=== PATIENT | male | born 1945 | race Caucasian/White ===

== ENCOUNTER 2024-10-15 21:26 | Emergency (ER) | payer MEDICARE, BC ==
[2024-10-15] MEDS: Sodium Chloride 0.9% 1,000 ML IV SCH ×2 (21:31→23:27)
[2024-10-15] MEDS ORDERED: Sodium Chloride 0.9% 10 ML Syringe FLUSH PRN (21:42)
[2024-10-15] MEDS: Morphine 4 MG/ML VIAL IVPUSH ONE (21:47)
[2024-10-15 22:18] LABS: BASOPHILS ABSOLUTE AUTO 0.03 K/uL (0.02-0.10); BASOPHILS PERCENT AUTO 0.2 % (0.0-0.5); EOSINOPHILS ABSOLUTE AUTO 0.05 K/uL (0.04-0.40); EOSINOPHILS PERCENT AUTO 0.3 % (1.0-5.0); HEMATOCRIT 37.5 % (40.0-54.0); HEMOGLOBIN 12.3 g/dL (13.0-18.0); LYMPHOCYTES ABSOLUTE AUTO 3.71 K/uL (1.50-4.00); LYMPHOCYTES PERCENT AUTO 19.1 % (20.0-40.0); MEAN CORPUSCULAR HEMOGLOBIN 31.1 pg (27.0-32.0); MEAN CORPUSCULAR HGB CONC 32.8 g/dL (31.0-35.0); MEAN CORPUSCULAR VOLUME 95 fL (76-96); MEAN PLATELET VOLUME 10.8 fL (6.0-10.0); MONOCYTES ABSOLUTE AUTO 1.08 K/uL (0.20-0.80); MONOCYTES PERCENT AUTO 5.6 % (3.0-10.0); NEUTROPHILS ABSOLUTE AUTO 14.52 K/uL (2.00-7.50); NEUTROPHILS PERCENT AUTO 74.8 % (45.0-70.0); PLATELET COUNT,PLT 305 K/uL (150-400); RED BLOOD CELL COUNT 3.96 M/uL (4.50-6.50); RED CELL DISTRIBUTION WIDTH 16.8 % (11.0-16.0); WHITE BLOOD CELL COUNT,WBC 19.4 K/uL (4.0-11.0)
[2024-10-15 22:27] LABS: LACTIC ACID 10.9 mmol/L (0.4-2.0)
[2024-10-15] MEDS: cefTRIAXone 2 GM in Sodium Chloride 0.9% 100 ML IV ONE ×2 (22:30→22:35)
[2024-10-15 22:33] LABS: MAGNESIUM 1.2 mg/dL (1.8-2.4); PHOSPHORUS 5.6 mg/dL (2.5-4.9)
[2024-10-15] MEDS: diazePAM 10 MG Tab PO ONE (22:35)
[2024-10-15 22:36] LABS: A/G RATIO 0.6 (0.8-2.0); ALBUMIN 2.5 g/dL (3.4-5.0); ANION GAP 30.2 mmol/L (5.0-15.0); BILIRUBIN TOTAL 0.8 mg/dL (0.0-1.0); BUN/CREATININE RATIO 5.7 (6-25); CALCIUM 9.3 mg/dL (8.5-10.1); EST CRCL DRUG DOSING (CG) 5.7 mL/min; POTASSIUM,K 3.3 mmol/L (3.5-5.1); PROTEIN TOTAL,TP 6.8 g/dL (6.4-8.2)
[2024-10-15 22:38] LABS: CARBON DIOXIDE,CO2 12.1 mmol/L (21.0-32.0); CREATININE 9.98 mg/dL (0.70-1.30); TROPONIN I HIGH SENSITIVITY 195.4 pg/ml (<=60.4)
[2024-10-16] MEDS: Norepinephrine Bit/0.9 % NaCl 4 MG in Premix Bag 1 BAG IV SCH (01:18)
[2024-10-16 01:55] VITALS: BP 80/48; PULSE 107
== END 2024-10-16 01:33 ==
LOC: LB.ED 21:26
DX: T85.71XA Infection and inflammatory reaction due to peritoneal dialysis catheter, initial encounter (principal); I48.91 Unspecified atrial fibrillation; R79.89 Other specified abnormal findings of blood chemistry; I10 Essential (primary) hypertension; E78.00 Pure hypercholesterolemia, unspecified; E11.9 Type 2 diabetes mellitus without complications; Z79.899 Other long term (current) drug therapy; Z79.82 Long term (current) use of aspirin; Z88.2 Allergy status to sulfonamides; Z88.8 Allergy status to other drugs, medicaments and biological substances
CPT/HCPCS: 36415; 71045; 71250; 74176; 80053; 82945; 83605; 83735; 83880; 84100; 84484; 85025; 85379; 87040; 87070; 87075; 87102; 87205; 93005; 96361; 96365; 96375; 99285-25; J0696; J2270; J7030